=== PATIENT | male | born 1960 | race Caucasian/White ===

== ENCOUNTER 2018-07-20 16:58 | Inpatient (IN) | payer MEDICAID ==
[~2018-07-20] VITALS: Ht 180.3 cm; Wt 80.7 kg
[2018-07-20] MEDS: DEXT 5% / NACL 0.45% 1,000 ML IV SCH
--- NOTE | 2018-07-20 17:02 | NUR ---
PT BIBA ALS TO BED 2
[2018-07-20 17:05] VITALS: BP 119/67
--- NOTE | 2018-07-20 17:09 | NUR ---
58 Y/O M BIBA W/C/O PALPITATIONS WITH SOB. DENIES CHEST PAIN. MONITOR SHOWED SVT. ER MD MADE AWARE AND AT BEDSIDE AT THE TIME OF TRIAGE. EKG DONE IN FIELD. PER PATIENT, JUST GOT DISCHARGED FROM [facility]. WITH ATRIAL FIB. PT DENIES N/V/D; SKIN IS INTACT, PINK/WARM/DRY; AAOX4. LUNGS CLEAR BL, BREATHING UNLABORED; HR EVEN AND REGULAR, BL PERIPHERAL PULSES PRESENT; PT DENIES ANY FEVER, CP, SOB, OR COUGH AT THIS TIME; PT STATES 0/10 PAIN AT THIS TIME; VSS; PATIENT POSITIONED FOR COMFORT; HOB ELEVATED; BEDRAILS UP X2; BED DOWN. HX: AT. FIB,CROHNS,ULCERATIVE COLITIS
--- NOTE | 2018-07-20 17:15 | NUR ---
VERBAL ORDER GIVEN BY DR. WOOTEN TO PUSH 25MG DILTIAZEM.
[2018-07-20] MEDS ORDERED: DILTIAZEM 125 MG in DEXTROSE 5% 100 ML IV ONE (17:20)
[2018-07-20] MEDS ORDERED: DILTIAZEM 25 MG/5 ML VIAL IVP ONE ×3 (17:20→17:28)
[2018-07-20] MEDS ORDERED: LORazepam 2 MG/ML VIAL IVP ONE (17:30)
--- NOTE | 2018-07-20 17:30 | NUR ---
PT HR DOWN TO 122
[2018-07-20] MEDS ORDERED: DILTIAZEM 125 MG/25 ML VIAL IV ONE (17:35)
[2018-07-20] MEDS ORDERED: GABA300C PO (17:45)
[2018-07-20] MEDS ORDERED: FAMO-90 PO (17:45)
[2018-07-20] MEDS ORDERED: ZINC220C12 PO (17:45)
[2018-07-20] MEDS ORDERED: ASCO500T45 PO (17:45)
[2018-07-20] MEDS ORDERED: MERC50TA PO (17:45)
[2018-07-20] MEDS ORDERED: METO50TE2 PO (17:45)
[2018-07-20] MEDS ORDERED: SULF500T6 PO (17:45)
[2018-07-20] MEDS ORDERED: SUCR1TAB35 PO ×2 (17:45)
[2018-07-20] MEDS ORDERED: PRED20TA5 PO (17:45)
[2018-07-20] MEDS ORDERED: OXYC40TE66 PO (17:45)
[2018-07-20] MEDS ORDERED: FERR325E14 PO (17:45)
[2018-07-20] MEDS ORDERED: MULT-2246 PO (17:45)
[2018-07-20] MEDS ORDERED: VITD1000 PO (17:45)
[2018-07-20 17:57] LABS: BASOPHILS % (AUTO) 0.1 % (0.0-2.0); EOSINOPHILS % (AUTO) 0.1 % (0.0-4.0); HEMATOCRIT 30.3 % (36-52); HEMOGLOBIN 9.7 g/dL (12.0-18.0); LYMPHOCYTES # (AUTO) 1.5 K/uL (2.0-11.5); LYMPHOCYTES % (AUTO) 24.8 % (20.5-51.1); MEAN CORPUSCULAR HEMOGLOBIN 31 pg (27-31); MEAN CORPUSCULAR HGB CONC 32 g/dL (33-37); MEAN CORPUSCULAR VOLUME 97.7 fL (80-94); MONOCYTES # (AUTO) 0.7 K/uL (0.8-1.0); MONOCYTES % (AUTO) 11.3 % (1.7-9.3); NEUTROPHILS # (AUTO) 3.9 K/uL (1.8-7.7); NEUTROPHILS % (AUTO) 63.7 % (42.2-75.2); PLATELET COUNT (AUTO) 359 K/uL (140-450); RED BLOOD CELL COUNT(AUTO) 3.11 MIL/uL (4.20-6.10); RED CELL DISTRIBUTION WIDTH 19.9 % (11.6-13.7); WHITE BLOOD COUNT (AUTO) 6.1 K/uL (4.8-10.8)
[2018-07-20 18:01] LABS: BARBITURATE, URINE NEG. ng/ml (NEG <=200); BENZODIAZEPINE, URINE NEG. ng/mL (NEG <=200); CANNABINOID, URINE NEG. ng/mL (NEG <=50); COCAINE, URINE NEG. ng/mL (NEG <=300); OPIATE, URINE NEG. ng/mL (NEG <=2000); PHENCYCLIDINE SCREEN,URINE NEG. ng/mL (NEG <=25)
--- NOTE | 2018-07-20 18:04 | NUR ---
PT RESTING IN BED, AROUSABLE TO NAME IN RELAXED POSISTION. ARMS AT SIDE, FEET CROSSED.
[2018-07-20] MEDS ORDERED: LACTATED RINGERS 1,000 ML IV ONE (18:05)
[2018-07-20 18:11] LABS: APPEARANCE,URINE CLEAR (CLEAR); BILIRUBIN,URINE NEGATIVE (NEGATIVE); BLOOD, URINE NEGATIVE (NEGATIVE); COLOR,URINE YELLOW (YELLOW); LEUKOCYTE ESTERASE ,URINE NEGATIVE (NEGATIVE); NITRITE, URINE NEGATIVE (NEGATIVE); UGLUCOSE NEGATIVE (NEGATIVE)
[2018-07-20 18:15] LABS: ANION GAP 10.2 (8-16); CARBON DIOXIDE 29.8 mmol/L (21-32)
[2018-07-20] MEDS ORDERED: KCL 20 MEQ/WATER INJ PREMIX 100 ML IV ONE (18:20)
[2018-07-20] MEDS ORDERED: MAG SULF 2000 MG/WATER PREMIX 50 ML IV ONE (18:20)
[2018-07-20 18:22] LABS: ALBUMIN 2.7 g/dL (3.4-5.0); TOTAL BILIRUBIN 0.2 mg/dL (0.0-1.0)
[2018-07-20] MEDS ORDERED: DOCUSATE SODIUM 100 MG GELCAP PO PRN (18:25)
[2018-07-20] MEDS ORDERED: ONDANSETRON 4 MG/2 ML VIAL IM/IVP PRN (18:25)
[2018-07-20] MEDS ORDERED: ACETAMINOPHEN 325 MG TAB PO PRN (18:25)
[2018-07-20] MEDS ORDERED: NACL 0.9% 1,000 ML IV SCH (18:25)
[2018-07-20 18:33] LABS: ACETONE, SERUM NEGATIVE (NEGATIVE)
[2018-07-20 18:37] LABS: MAGNESIUM 2.1 mg/dL (1.8-2.4)
[2018-07-20] MEDS ORDERED: POTASSIUM CHLORIDE 40 MEQ, LIDOCAINE MPF 1% - 5 mL VIAL 25 MG in NACL 0.9% 250 ML IV SCH (19:00)
--- NOTE | 2018-07-20 19:00 | NUR ---
RECEIVED PT FROM ER VIA DEE. PT. AOX4. FOLLOWS COMMANDS. ABLE TO VERBALIZE NEEDS. AFEBRILE. EVEN, UNLABORED BREATHING. LUNG SOUNDS CLEAR BILATERALLY. SR ON MONITOR. DENIES CHEST PAIN, SOB. NO EDEMA NOTED. BOWEL SOUNDS ACTIVE X4 QUADRANTS. NPO EXCEPT MEDS. CONTINENT TO BOWEL AND BLADDER. SKIN WARM DRY. IV SITE RAC 18G PATENT INTACT. LAC 20G PATENT INTACT. R WRIST 20G PATENT INTACT. ON CARDIZEM DRIP 5MG/HR. AMB WITH WALKER. NO SIGNS OF ACUTE DISTRESS. BED IN LOWEST POSITION. CALL LIGHT WITHIN REACH.
--- NOTE | 2018-07-20 19:02 | NUR ---
PT STATES TO HAVE A FISTULA ON SACRAL COCCYX AREA. REFUSES TO GET PICTURE TAKEN. EXPLAIN RISK VS. BENEFITS. PT STILL REFUSES. WISH TO KEEP PANTS ON DURING STAY.
--- NOTE | 2018-07-20 19:05 | NUR ---
DR. BYERS AT BEDSIDE AT THIS TIME. UPDATED ON PTS CURRENT CONDITION. EXPLAINED RISK VS. BENEFITS OF CENTRAL LINE
[2018-07-20 19:07] LABS: CHOL/HDL RATIO 3.6 (1-4.5); PHOSPHORUS 3.9 mg/dL (2.5-4.9); THYROID STIMULATING HORMONE 0.81 uIU/mL (0.34-3.74)
--- NOTE | 2018-07-20 19:13 | NUR ---
Patient will be admitted to care of DR. BLOCK. Admited to ICU. Will go to room 1. Belongings list completed. Report to GIULIA RAMOS.
--- NOTE | 2018-07-20 19:30 | NUR ---
DR. HEART AT BEDSIDE AT THIS TIME.
[2018-07-20 20:00] VITALS: BP 115/74
--- NOTE | 2018-07-20 20:25 | NUR ---
DR. CORTEZ AT BEDSIDE AT THIS TIME. UPDATED ON PTS CURRENT CONDITION. WILL CONTINUE TO FOLLOW UP ANY ADDITIONAL ORDERS.
--- NOTE | 2018-07-20 21:01 | NUR ---
PT. REFUSING CENTRAL LINE PLACEMENT. DR. BYERS AT BEDSIDE AT THIS TIME. EXPLAINED RISK VS. BENEFITS FOR CENTRAL LINE INSERTION. PT STILL REFUSING. PREFERS PICC LINE INSTEAD. WILL CONTINUE TO MONITOR.
[2018-07-20 22:00] VITALS: BP 130/86
--- NOTE | 2018-07-20 22:18 | NUR ---
PT AGITATED. WISHES TO LEAVE AMA IF NOT GIVEN FOOD OR DRINK. DR. BYERS MADE AWARE.
--- NOTE | 2018-07-20 22:29 | NUR ---
DR. BYERS AT BEDSIDE AT THIS TIME. EXPLAINED RISK VS. BENEFITS. PT WISHES TO STAY IN HOSPITAL AT THIS TIME. D/T NOWHERE TO GO.
[2018-07-20] MEDS: MORPHINE SULFATE 2 MG/ML SYR IVP PRN (23:54)
[2018-07-21] VITALS (12 sets, daily range): BP systolic 100–137; BP diastolic 56–97
--- NOTE | 2018-07-21 | NUR ---
PT C/O PAIN 01/02 TO ABD AREA. ADMINISTERED MORPHINE IVP.
--- NOTE | 2018-07-21 00:14 | NUR ---
DR. BYERS AT BEDSIDE AT THIS TIME. UPDATED ON PTS CURRENT CONDITION. CONTINUE TO MONITOR
--- NOTE | 2018-07-21 00:46 | NUR ---
BLOOD PRESSURE 88/46. HEART RATE 78. CARDIZEM DRIP HELD AT THIS TIME. NO SIGNS OF ACUTE DISTRESS. WILL CONTINUE TO MONITOR.
--- NOTE | 2018-07-21 04:45 | NUR ---
LAB AT BEDSIDE AT THIS TIME FOR AM DRAWS
[2018-07-21] MEDS: sulfaSALAzine 500 MG TAB PO SCH ×3 (05:00→21:48)
--- NOTE | 2018-07-21 05:41 | NUR ---
AZULFIDINE 1000MG NOT GIVEN. UNAVAILABLE AT THIS TIME. MADE AWARE. WILL RESCHEDULE FOR 0900
[2018-07-21 06:11] LABS: BASOPHILS % (AUTO) 0.1 % (0.0-2.0); EOSINOPHILS % (AUTO) 0.5 % (0.0-4.0); HEMATOCRIT 30.6 % (36-52); HEMOGLOBIN 9.6 g/dL (12.0-18.0); LYMPHOCYTES # (AUTO) 2.4 K/uL (2.0-11.5); LYMPHOCYTES % (AUTO) 37.4 % (20.5-51.1); MEAN CORPUSCULAR HEMOGLOBIN 31 pg (27-31); MEAN CORPUSCULAR HGB CONC 31 g/dL (33-37); MEAN CORPUSCULAR VOLUME 98.4 fL (80-94); MONOCYTES # (AUTO) 0.7 K/uL (0.8-1.0); MONOCYTES % (AUTO) 10.4 % (1.7-9.3); NEUTROPHILS # (AUTO) 3.3 K/uL (1.8-7.7); NEUTROPHILS % (AUTO) 51.6 % (42.2-75.2); PLATELET COUNT (AUTO) 363 K/uL (140-450); RED BLOOD CELL COUNT(AUTO) 3.11 MIL/uL (4.20-6.10); RED CELL DISTRIBUTION WIDTH 19.8 % (11.6-13.7); WHITE BLOOD COUNT (AUTO) 6.4 K/uL (4.8-10.8)
[2018-07-21 06:17] LABS: ANION GAP 10.8 (8-16); CARBON DIOXIDE 28.1 mmol/L (21-32); CREATININE 0.7 mg/dL (0.7-1.3); POTASSIUM 3.9 mmol/L (3.5-5.1)
[2018-07-21] MEDS ORDERED: PHENYLEPHRINE 10 MG/ML VIAL ONE (06:27)
--- NOTE | 2018-07-21 06:38 | NUR ---
PT HAD LARGE BM AT THIS TIME.
--- NOTE | 2018-07-21 07:08 | NUR ---
ENDORSED CARE TO INCOMING SHIFT FOR CONTINUITY OF CARE. BED IN LOWEST POSITION. CALL LIGHT WITHIN REACH.
--- NOTE | 2018-07-21 07:10 | NUR ---
RECEIVED PATIENT FROM ARCHITECTURE PROFESSOR RN, FLOR, FOR CONTINUITY OF CARE. PATIENT IS AAOX4, ABLE TO MAKE NEEDS KNOWN AND FOLLOWS SIMPLE COMMANDS. PATIENT HAS A SACRAL FISTULA, PER ARCHITECTURE PROFESSOR RN, PATIENT REFUSED TO HAVE PICTURES TAKEN. PATIENT IS ON ROOM AIR, SR ON MONITOR, DENIES PAIN AT THIS TIME. HE HAS PERIPHERAL IV SITE TO LAC 18, RAC 20 AND R WRIST 20 GAUGE.ALL SAFETY PRECAUTIONS AND ALARMS ASSESSED AND ENFORCED. NO SIGNS OF DISTRESS AT THIS TIME, CALL LIGHT WITHIN REACH. WILL CONTINUE TO MONITOR
[2018-07-21] MEDS ORDERED: SUCRALFATE 1 GM TAB PO SCH (07:30)
--- NOTE | 2018-07-21 08:01 | NUR ---
DR. BLOCK AND RESIDENT PHYSICIANS AT BEDSIDE, UPDATED ON PATIENT'S CONDITION. WILL FOLLOW UP ON ANY ORDERS
--- NOTE | 2018-07-21 08:22 | NUR ---
PATIENT HAS BEEN SCREENED AND CATEGORIZED HIGH NUTRITION RISK. PATIENT WILL BE SEEN WITHIN 1-2 DAYS OF ADMISSION. 07/21/18-07/22/[address]
--- NOTE | 2018-07-21 08:25 | NUR ---
DR. CORTEZ HERE TO EXAMINE PATIENT, UPDATED ON PATIENT'S CONDITION. DISCUSSED POC WITH RESIDENT PHYSICIAN. WILL FOLLOW UP ON ANY ORDERS.
[2018-07-21] MEDS ORDERED: NON-FORMULARY ITEM PO SCH (09:00)
[2018-07-21] MEDS ORDERED: APIXABAN 2.5 MG TAB PO SCH (09:15)
[2018-07-21] MEDS: ASCORBIC ACID 500 MG TAB PO SCH (09:23)
[2018-07-21] MEDS: FERROUS SULFATE 325 MG TABEC PO SCH ×2 (09:24→21:51)
[2018-07-21] MEDS: PANTOPRAZOLE 40 MG INJ VIAL IVP SCH (09:25)
[2018-07-21] MEDS: METOPROLOL SUCCINATE 50 MG TABER PO SCH ×2 (09:25→21:52)
[2018-07-21] MEDS: predniSONE 20 MG TAB PO SCH ×2 (09:25→21:49)
[2018-07-21] MEDS: ZINC SULF 220 MG CAP PO SCH (09:25)
[2018-07-21] MEDS: GABAPENTIN 300 MG CAP PO SCH ×4 (09:25→21:52)
[2018-07-21] MEDS: MORPHINE SULFATE 2 MG/ML SYR IVP PRN ×2 (09:26→19:08)
--- NOTE | 2018-07-21 09:37 | NUR ---
COLLECTED STOOL OB, SENT TO LAB.
[2018-07-21] MEDS: SUCRALFATE 1 GM TAB PO SCH ×3 (09:51→17:04)
[2018-07-21] MEDS: DEXT 5% / NACL 0.45% 1,000 ML IV SCH (09:52)
[2018-07-21 11:22] LABS: FOLIC ACID 11.5 ng/mL (>3.0); T4 (THYROXINE) 5.3 ug/dL (4.5-12.0)
--- NOTE | 2018-07-21 11:38 | NUR ---
REINFORCEMENT MAKER AT BEDSIDE, NO SIGNS OF DISTRESS AT THIS TIME
[2018-07-21] MEDS: DILTIAZEM 30 MG TAB PO SCH ×2 (12:04→17:05)
[2018-07-21] MEDS ORDERED: MERCAPTOPURINE 50MG TABLET PO SCH (12:16)
[2018-07-21] MEDS ORDERED: HYDRAGUARD CREAM TP SCH (15:31)
--- NOTE | 2018-07-21 15:46 | NUR ---
PER FROM . ORDER FOR DME SEND TO [facility] CALLED CHEN AT [facility], FAXED ORDER FOR [phone].
[2018-07-21] MEDS: NACL 0.45% 1,000 ML IV SCH (16:19)
--- NOTE | 2018-07-21 16:24 | NUR ---
PATIENT IS SLEEPING, DENIES ANY SOB OR PAIN AT THIS TIME. WILL CONTINUE TO MONITOR
--- NOTE | 2018-07-21 17:11 | NUR ---
07/21/18 RD INITIAL ASSESSMENT COMPLETED PLEASE REFER TO NUTRITION ASSESSMENT UNDER CARE ACTIVITY FOR ESTIMATED NUTRITIONAL NEEDS. 1. CONTINUE CARDIAC DIET TOLERATED 2. RD PROVIDED NUTRITION EDUCATION ON CROHN�S DISEASE 3. RD TO FOLLOW-UP 5-7 DAYS, LOW RISK FABIAN HOFFMANN RD
--- NOTE | 2018-07-21 19:11 | NUR ---
ENDORSED CONTINUITY OF CARE TO MARKER SHIPMENTS RNANDREW. NO SIGNS OF DISTRESS AT THIS TIME
--- NOTE | 2018-07-21 19:30 | NUR ---
SBAR REPORT RECEIVED FROM DAY RN, MARIEL, HR IN 90S, GCS OF 15. ON ROOM AIR, NO S/S OF ANY ACUTE DISTRESS, IVF OF 1/2 NS RUNNING AT 70ML/HR. WILL CONTINUE TO MONITOR CLOSELY.
--- NOTE | 2018-07-21 21:15 | NUR ---
PT IS KEEP TAKING OFF GOWN AND PUTTING HIS OWN CLOTHES. DENIES ANY PLAN TO GO OUT. PT ASKED IF HE CAN SMOKE OUT SIDE AND COME BACK. PT MADE AWARE OF POLICIES OF ICU. VERBALIZES UNDERSTANDING.
[2018-07-21] MEDS: APIXABAN 2.5 MG TAB PO SCH (21:50)
[2018-07-21] MEDS: MERCAPTOPURINE 50MG TABLET PO SCH (21:51)
--- NOTE | 2018-07-21 23:45 | NUR ---
PT ASKED FOR MEAL, SANDWICHES AND SOME FRUIT JUICE GIVEN
[2018-07-22] VITALS (11 sets, daily range): BP systolic 110–157; BP diastolic 59–90
[2018-07-22] MEDS: DILTIAZEM 30 MG TAB PO SCH ×4 (00:23→17:29)
[2018-07-22] MEDS: MORPHINE SULFATE 2 MG/ML SYR IVP PRN ×5 (00:27→21:00)
--- NOTE | 2018-07-22 02:05 | NUR ---
PT ASKED FOR SCRUB PANTS, PROVIDED WITH IBIS. PT WARM AND COMFORTABLE.
[2018-07-22] MEDS: sulfaSALAzine 500 MG TAB PO SCH ×3 (05:12→21:01)
[2018-07-22] MEDS: NACL 0.45% 1,000 ML IV SCH ×3 (05:14→21:44)
[2018-07-22 05:46] LABS: ANION GAP 12.2 (8-16); CARBON DIOXIDE 27.3 mmol/L (21-32); CREATININE 0.8 mg/dL (0.7-1.3); POTASSIUM 4.5 mmol/L (3.5-5.1)
[2018-07-22 05:51] LABS: MAGNESIUM 1.9 mg/dL (1.8-2.4); PHOSPHORUS 3.1 mg/dL (2.5-4.9)
[2018-07-22 06:04] LABS: BASOPHILS % (AUTO) 0.1 % (0.0-2.0); EOSINOPHILS % (AUTO) 0.1 % (0.0-4.0); HEMOGLOBIN 11.1 g/dL (12.0-18.0); LYMPHOCYTES # (AUTO) 0.6 K/uL (2.0-11.5); LYMPHOCYTES % (AUTO) 8.4 % (20.5-51.1); MEAN CORPUSCULAR HEMOGLOBIN 31 pg (27-31); MEAN CORPUSCULAR HGB CONC 32 g/dL (33-37); MEAN CORPUSCULAR VOLUME 98.7 fL (80-94); MONOCYTES # (AUTO) 0.8 K/uL (0.8-1.0); MONOCYTES % (AUTO) 9.9 % (1.7-9.3); NEUTROPHILS # (AUTO) 6.3 K/uL (1.8-7.7); NEUTROPHILS % (AUTO) 81.5 % (42.2-75.2); PLATELET COUNT (AUTO) 414 K/uL (140-450); RED BLOOD CELL COUNT(AUTO) 3.55 MIL/uL (4.20-6.10); RED CELL DISTRIBUTION WIDTH 18.8 % (11.6-13.7); WHITE BLOOD COUNT (AUTO) 7.7 K/uL (4.8-10.8)
[2018-07-22] MEDS: SUCRALFATE 1 GM TAB PO SCH ×3 (06:54→16:42)
--- NOTE | 2018-07-22 07:25 | NUR ---
RECEIVED REPORT FROM HEAD BANQUET WAITRESS RN. PT SITTING IN BED. A/O X4. VERBALIZES NEEDS. SKIN DRY AND WARM TO TOUCH. SR ON MONITOR. LUNGS CLEAR. RIGHT WRIST 20G PERIPHERAL LINE. 0.45% NS INFUSING AT 70 ML/HR. SITE INTACT. FLUSHED. LEFT AC SALINE LOCK. INTACT. FLUSHED. ABDOMEN SOFT ROUND AND NON-TENDER. ACTIVE BOWEL SOUND. DENIES ANY PAIN AT THIS TIME. BED IN LOW POSITION LOCKED. CALL LIGHT WITHIN REACH. WILL CONTINUE TO MONITOR.
--- NOTE | 2018-07-22 07:45 | NUR ---
REDNESS NOTED ON GEOVANNI ANAL AREA. FISTULA NOTED ON LEFT BUTTOCK. NO ANY DRAINAGE NOTED AT THIS TIME. DR. BELEM WALKER.
[2018-07-22] MEDS: PANTOPRAZOLE 40 MG INJ VIAL IVP SCH (08:10)
[2018-07-22] MEDS: ASCORBIC ACID 500 MG TAB PO SCH (08:11)
[2018-07-22] MEDS: GABAPENTIN 300 MG CAP PO SCH ×4 (08:11→21:02)
[2018-07-22] MEDS: predniSONE 20 MG TAB PO SCH ×2 (08:11→21:02)
[2018-07-22] MEDS: ZINC SULF 220 MG CAP PO SCH (08:11)
[2018-07-22] MEDS: FERROUS SULFATE 325 MG TABEC PO SCH ×2 (08:11→21:01)
[2018-07-22] MEDS: APIXABAN 2.5 MG TAB PO SCH ×2 (08:13→21:06)
[2018-07-22] MEDS: HYDROcodone/APAP 5/325 MG 1 TAB TAB PO PRN ×2 (08:43→19:34)
[2018-07-22] MEDS: METOPROLOL 50 MG TAB PO SCH ×2 (08:43→21:01)
[2018-07-22] MEDS: MERCAPTOPURINE 50MG TABLET PO SCH ×2 (08:45→21:08)
[2018-07-22] MEDS ORDERED: METOPROLOL 50 MG TAB ONE (08:49)
--- NOTE | 2018-07-22 09:55 | NUR ---
PT DENIES ANY NAUSEA, VOMITING OR DIARRHEA. AFEBRILE. HAS GOOD APPETITE. NO C/O ANY ABDOMINAL PAIN.
--- NOTE | 2018-07-22 11:20 | NUR ---
DR. HEART IN TO SEE THE PT. UPDATE PT CONDITION. OKAY TO TRANSFER PT TELE PER DR. HEART.
--- NOTE | 2018-07-22 11:32 | NUR ---
PVC NOTED ON BEDSIDE ECG MONITOR. DR. PATRICIA MADE AWARE. ORDERED 12 LEAD EKG. WILL F/U ORDER.
--- NOTE | 2018-07-22 11:40 | NUR ---
SPOKE TO DR. HEART. MADE AWARE ABOUT PVCS. OKAY TO TRANSFER TO TELE PER DR. HEART.
--- NOTE | 2018-07-22 12:25 | NUR ---
DR. BENITES IN TO SEE PT. UPDATED PT CONDITION. PT WAS EXPLAINED ABOUT DISEASE AND POC BY DR. BENITES. PT VERBALIZED UNDERSTANDING. ORDERED FOR DOPPLER VENOUS DOPPLER LOWER EXTREMITIES TO RULE OUT DVT. DR. PATRICIA AWARE. WILL F/U ORDER
--- NOTE | 2018-07-22 12:28 | NUR ---
PT EVELUATED BY WOUND CARE NURSE.
--- NOTE | 2018-07-22 12:55 | NUR ---
WOUND CARE EVALUATION NOTE: REASON FOR EVALUATION: LEFT BUTTOCKS WOUNDS SKIN ASSESSMENT DONE WITH PRIMARY RN WITH THIS 58 Y/O MALE PT ADMITTED TO [facility] WITH INITIAL DX OF A FIB. PAST MEDICAL HX INCLUDES CROHN�S DISEASE, A-FIB AND GERD. PT IS AAX4. PER PT. HE HAS CROHN�S DISEASE AND LBM FOR PAST FEW MONTHS WITH PERIANAL WOUNDS FOR MONTHS, LAST TREATMENT WAS DONE AT �[facility]� WITH BARRIER SPRAYS DAILY AND NEEDED. SKIN IS WARM AND DRY, BLE WITH FEW HAIR GROWTH, DORSAL PEDAL PULSES PRESENT.FUNGAL LIKE TOE NAILS. PLAN OF CARE DISCUSSED WITH PRIMARY RN AND PT. PT VERBALIZES UNDERSTANDING. INTEGUMENTARY: -MULTIPLE TATTOO TO UPPER ARMS -MOISTURE ASSOCIATED DERMATITIS FROM LBM 2/2 CROHN'S DISEASE TO R/L INNER BUTTOCKS REDNESS AND PER-ANAL WITH MULTIPLE LINING SHAPES PARTIAL THICKNESS LOSS OF SKIN, WOUND BEDS ARE CLEAN, MOIST, NO S/S INFECTION. ENTIRE REDNESS AREA 11X4.5X0.1CM. RECOMMENDATIONS -CLEANSE R/L INNER BUTTOCKS AND PERIANAL WITH SOAP AND WATER, APPLY Z-GUARD BIDWC AND PRN IF SOILING, PER PT�S REQUEST PLEASE COVER WITH ISLAND DRESSING -OFFLOAD BILATERAL HEELS BY PLACING PILLOWS UNDER CALVES UNLESS OTHERWISE CONTRAINDICATED -CONTINUE TO FOLLOW RD RECOMMENDATIONS ALL ABOVE RECOMMENDATIONS DISCUSSED WITH PRIMARY RN AND DR. MARQUEZ PLEASE CONTACT WOUND CARE NURSE FOR ANY QUESTION AND CHANGE OF WOUND CONDITION.
--- NOTE | 2018-07-22 12:55 | NUR ---
Cuong Moore from [place] here to evaluate the pt.
[2018-07-22] MEDS ORDERED: Z-GUARD PASTE TP PRN (13:10)
--- NOTE | 2018-07-22 14:07 | NUR ---
RECEIVED CALL FROM [facility]. SPOKE TO YNES CHADWICK. SHE WANTS US TO CALL TO THE NUMBER PROVIDED [phone] OR [phone] (DR. NAVAS) BEFORE PT GET DISCHARGE.
--- NOTE | 2018-07-22 14:31 | NUR ---
PRN G-GUARD APPLIED TO PERIANAL AREA. NO ANY C/O PAIN. SR ON MONITOR. DENIES ANY N/V OR DIARRHEA.
--- NOTE | 2018-07-22 14:56 | NUR ---
Spoke with Cuong alva from [facility] . He will confirm with me tomorrow if the pt will be accepted in [facility].
--- NOTE | 2018-07-22 15:07 | NUR ---
PT EVALUATED BY DR. CORTEZ.
--- NOTE | 2018-07-22 15:17 | NUR ---
LOWER EXTREMITIES VENOUS DOPPLER DONE.
[2018-07-22] MEDS ORDERED: BENA20TA PO (15:26)
[2018-07-22] MEDS ORDERED: SIMV20TA6 PO (15:26)
--- NOTE | 2018-07-22 15:37 | NUR ---
CALLED [phone]. SPOKE TO FARRUKH. F[facility]UKH SAID IF PATIENT NEEDS THEIR SERVICES HE CAN GO THERE. PATIENT MADE AWARE.
--- NOTE | 2018-07-22 18:15 | NUR ---
PT REMAINED AFEBRILE THROUGHOUT THE SHIFT. SR. NO N/V/D NOTED. SPO2 965 IN ROOM AIR. NO ANY COMPLAIN OF PAIN. PT WILL BE TRANSFERRED TO TELE 105B.
--- NOTE | 2018-07-22 18:35 | NUR ---
PT TRANSFERRED TO TELE UNIT ROOM 105B ON STABLE CONDITION VIA WHEELCHAIR. REPORT GIVEN TO RN INGRED. BELONGINGS ALONG WITH WALKER TAKEN TO ROOM WITH THE PATIENT. PATIENT AND NURSE AWARE.
--- NOTE | 2018-07-22 18:40 | NUR ---
ASSUMED CARE FROM ICU NURSE DANNY-RACHEL. PT AAOX4. NO SOB NOTED. NO COMPLAINTS OF PAIN AT THIS TIME. SETTLED PT IN BED, INSTRUCTED PT TO CALL FOR ASSISTANCE,CALL LIGHT WITHIN REACH, PT VERBALIZED UNDERSTANDING.
--- NOTE | 2018-07-22 19:00 | NUR ---
PT AWAKE, NO SOB NOTED. NO COMPLAINTS MADE. WILL ENDORSE TO NEXT SHIFT NURSE FOR CONTINUITY OF CARE.
--- NOTE | 2018-07-22 19:10 | NUR ---
RECEIVED PT AWAKE ON BED READING A BOOK, VITAL SIGNS STABLE, COMPLAINING OF ABDOMINAL PAIN, REQUESTING FOR PAIN PILL, WILL MEDICATE WITH NORCO, IVF INFUSING WELL, DENIES ANY EPISODE OF DIARRHEA, SAFETY MEASURES IN PLACE, CALL LIGHT WITHIN REACH.
[2018-07-22] MEDS ORDERED: SIMVASTATIN 20 MG TAB PO SCH (21:00)
--- NOTE | 2018-07-22 21:10 | NUR ---
DUE MEDS ADMINISTERED, AMBULATORY TO TOILET WITH STEADY GAIT, VOIDING FREELY, ALL NEEDS ATTENDED.
--- NOTE | 2018-07-22 23:40 | NUR ---
PT AWAKE WATCHING TV, VITAL SIGNS STABLE, TOLERABLE PAIN AT THIS TIME, IVF INFUSING WELL, CONTINUE TO MONITOR CLOSELY.
[2018-07-23] VITALS: BP 133/89
[2018-07-23] MEDS: MORPHINE SULFATE 2 MG/ML SYR IVP PRN ×2 (01:30→06:46)
[2018-07-23] MEDS: Z-GUARD PASTE TP SCH ×2 (01:32→13:22)
--- NOTE | 2018-07-23 01:40 | NUR ---
PT STATED HE WANTS HIS IVF OFF FOR NOW SINCE HIS BEEN VOIDING A LOT AND HE CANNOT GET SOME SLEEP, RISK AND BENEFITS EXPLAINED, PT WANTS TO RESUME IVF IN THE MORNING, DR BYERS MADE AWARE.
[2018-07-23] MEDS: HYDROcodone/APAP 5/325 MG 1 TAB TAB PO PRN ×2 (02:57→10:53)
--- NOTE | 2018-07-23 02:57 | NUR ---
PT COMPLAINING THAT MORPHINE WAS NOT RELIEVING THE PAIN BECAUSE IT WAS FLUSH A LOT AND SO IT GOT DILUTED, PT NOW REQUESTING FOR NORCO, NORCO PO GIVEN FOR ABDOMINAL PAIN, VITAL SIGNS STABLE, MONITORED CLOSELY.
[2018-07-23 04:00] VITALS: BP 140/88
[2018-07-23] MEDS: sulfaSALAzine 500 MG TAB PO SCH ×2 (04:42→13:15)
[2018-07-23] MEDS ORDERED: NICOTINE TRANSD SYS 14 MG/24 HR PATCH TD SCH (05:00)
--- NOTE | 2018-07-23 05:05 | NUR ---
PT AWAKE WANTS TO GO OUTSIDE THE HOSPITAL AND SMOKE, TOLD PT THAT ITS AGAINST HOSPITAL POLICY FOR PT TO GO OUTSIDE AND SMOKE AND OFFERED TO HIM THAT I CAN GET AN ORDER FOR NICOTINE PATCH, PT STILL INSISTING STATING HOSPITAL EMPLOYEES CAN SMOKE AND IN OTHER HOSPITAL THEY LET HIM GO OUTSIDE AND SMOKE WITH ESCORT, REINFORCE HOSPITAL POLICY AGAIN, PT UPSET AND STARTED TO SWEAR, CHARGE NURSE SHELBIE AND DR BYERS MADE AWARE, DR BYERS TALKED TO PT AND SHE WILL ORDER NICOTINE PATCH FOR PT TO TRY, NICOTINE PATCH APPLIED TO RT DELTOID, PT PACING INSIDE THE ROOM, MONITORED CLOSELY.
[2018-07-23 06:15] LABS: BASOPHILS % (AUTO) 0.1 % (0.0-2.0); HEMATOCRIT 36.7 % (36-52); HEMOGLOBIN 11.6 g/dL (12.0-18.0); LYMPHOCYTES # (AUTO) 0.9 K/uL (2.0-11.5); LYMPHOCYTES % (AUTO) 11.6 % (20.5-51.1); MEAN CORPUSCULAR HEMOGLOBIN 31 pg (27-31); MEAN CORPUSCULAR HGB CONC 32 g/dL (33-37); MEAN CORPUSCULAR VOLUME 98.1 fL (80-94); MONOCYTES # (AUTO) 0.7 K/uL (0.8-1.0); MONOCYTES % (AUTO) 9.3 % (1.7-9.3); NEUTROPHILS # (AUTO) 5.9 K/uL (1.8-7.7); PLATELET COUNT (AUTO) 437 K/uL (140-450); RED BLOOD CELL COUNT(AUTO) 3.74 MIL/uL (4.20-6.10); RED CELL DISTRIBUTION WIDTH 16.7 % (11.6-13.7); WHITE BLOOD COUNT (AUTO) 7.4 K/uL (4.8-10.8)
[2018-07-23] MEDS: SUCRALFATE 1 GM TAB PO SCH ×2 (06:46→11:39)
[2018-07-23 06:52] LABS: ANION GAP 12.3 (8-16); CREATININE 0.9 mg/dL (0.7-1.3); POTASSIUM 4.3 mmol/L (3.5-5.1)
--- NOTE | 2018-07-23 06:52 | NUR ---
DUE CARAFATE GIVEN, MEDICATED PRN FOR PAIN WITH MORPHINE IVP AND FLUSHED IT WITH 1ML STERILE WATER PER PT'S DIRECTION, PT STATED NICOTINE PATCH HELPS WITH HIS SMOKING CRAVING, PT STATED TWO BM WITH WELL FORMED STOOL, WILL ENDORSE.
[2018-07-23 06:57] LABS: PHOSPHORUS 3.7 mg/dL (2.5-4.9)
--- NOTE | 2018-07-23 07:10 | NUR ---
RECEIVED PT REPORT FROM BICYCLE INSPECTOR NURSE. PT IS ALERT AND AWAKE, NO S/S OF ACUTE DISTRESS NOTED. PT IS AMBULATORY, NO SKIN ISSUES, ON ROOM AIR. TWO IV SITES NOTED: LAC 22 G, AND R HAND 20 G. PT HAS BEEN REFUSING IV FLUIDS. CALL LIGHT WITHIN REACH. WILL CONTINUE TO MONITOR.
--- NOTE | 2018-07-23 07:33 | NUR ---
PT SLEEPING, NO SIGNS OF DISTRESS, REPORT GIVEN TO RACHEL BOWMAN FOR CONTINUITY OF CARE.
[2018-07-23 08:00] VITALS: BP 151/97
[2018-07-23] MEDS ORDERED: DILT120C95 PO (08:22)
[2018-07-23] MEDS ORDERED: APIX2.5 PO (08:22)
[2018-07-23] MEDS ORDERED: BENAZEPRIL 20 MG TAB PO SCH (09:00)
[2018-07-23] MEDS ORDERED: DILTIAZEM 120 MG CAPER PO SCH (09:00)
--- NOTE | 2018-07-23 09:05 | NUR ---
PT INFORMED RN THAT HIS 4W WALKER IS BROKEN, AND HE IS REQUESTING IT TO BE REPLACED OR FIXED. CHARGE NURSE IS AWARE. WILL FOLLOW UP WITH MD AND CM.
--- NOTE | 2018-07-23 09:16 | NUR ---
LATE ENTRY FOR 07/22/18 1150 MET WITH PATIENT TO DISCUSS DISCHARGE PLAN, MARILYN FAYE RN/CM PRESENT. PER PATIENT HE LIVES IN [facility] AND THAT BEN JI MADE ARRANGEMENTS FOR AN UBER SET O TYPE OPERATOR TO PICK HIM UP FROM [facility] AND TRANSPORT HIM TO [facility] FOR TREATMENT OF HIS CROHN'S DISEASE. HE STATED THAT THE [facility] ALMA[facility] APPLIED FOR SSI FOR HIM AND THAT HE THINKS HE HAS AN APPOINTMENT ON THIS FRIDAY TO GO TO THE OFFICE. HE SAID THAT WHEN HE WAS DISCHARGED FROM [place] HE WAS LIVING ON THE [place] FOR A FEW DAYS THEN CAME TO [facility]. ASKED PATIENT WHAT IS PLAN WAS FOR DISCHARGE AND HE SAID HE WANTS TO GO BACK TO [place] BUT DOESN'T HAVE ANY MONEY OR ANYWAY TO GET THERE. ASKED PATIENT IF HE HAS FOLLOWED UP WITH [facility]IA[facility] ALMAZAN AND HE SAID THAT HE HAD NOT BUT DOES HAVE HER NUMBER. SUGGESTED TO HIM THAT HE CONTACT WILL[facility] AND VERIFY HIS APPT ON FRIDAY AND THAT TRANSPORTATION COULD BE ARRANGED FOR HIM TO GO TO HIS APPT FRIDAY IN [place] TO FOLLOW UP ON HIS SSI APPLICATION AND STATUS. OFFERED PATIENT RESOURCES ON SHELTERS AND THEN HE STATED WELL MAYBE I CAN CONTACT MY JODI IN [place] AND SEE IF HE CAN WIRE ME SOME MONEY AND I CAN TAKE THE AMTRACK AND THEN CATCH A BUS. INFORMED PATIENT WILL FOLLOW UP WITH HIM TOMORROW ON THE STATUS OF HIS FINDINGS OF THE PHONE CALLS HE PLANS TO MAKE.
[2018-07-23] MEDS: PANTOPRAZOLE 40 MG INJ VIAL IVP SCH (09:47)
[2018-07-23] MEDS: FERROUS SULFATE 325 MG TABEC PO SCH (09:48)
[2018-07-23] MEDS: METOPROLOL 50 MG TAB PO SCH (09:48)
[2018-07-23] MEDS: ZINC SULF 220 MG CAP PO SCH (09:48)
[2018-07-23] MEDS: ASCORBIC ACID 500 MG TAB PO SCH (09:48)
[2018-07-23] MEDS: GABAPENTIN 300 MG CAP PO SCH ×2 (09:49→13:14)
[2018-07-23] MEDS: predniSONE 20 MG TAB PO SCH (09:49)
[2018-07-23] MEDS: APIXABAN 2.5 MG TAB PO SCH (09:50)
[2018-07-23] MEDS: MERCAPTOPURINE 50MG TABLET PO SCH (09:54)
[2018-07-23] MEDS: NACL 0.45% 1,000 ML IV SCH (10:44)
[2018-07-23 12:00] VITALS: BP 127/74
[2018-07-23] MEDS ORDERED: APIX5TAB PO (12:25)
[2018-07-23] MEDS ORDERED: DILT-135 PO (12:25)
--- NOTE | 2018-07-23 12:39 | NUR ---
ASSISTED LIVING HOME DIRECTOR PROVIDED PT WITH NEW 4W WALKER PER PT'S REQUEST, PT'S OLD WALKER IS BROKEN.
--- NOTE | 2018-07-23 13:38 | NUR ---
PHOTO TAKEN OF PT'S BUTTOCK DERMATITIS WOUND FOR DC DOCUMENTATION.
--- NOTE | 2018-07-23 13:39 | NUR ---
OBTAINED TAXI VOUCHER FOR PT TO DISCHARGE.
--- NOTE | 2018-07-23 15:30 | NUR ---
PT HAS DISCHARGED. PT WAS GIVEN DC INSTRUCTIONS TO WHICH HE VERBALIZED UNDERSTANDING. COMMUNITY RESOURCE INFORMATION GIVEN. PT SIGNED ALL DC DOCUMENTS. REFUSED FLU VACCINE. IV SITES DC'D, WRIST BAND REMOVED. PT LEFT WITH ALL HIS BELONGINGS IN STABLE CONDITION VIA TAXI.
[2018-07-24] MEDS ORDERED: NICOTINE TRANSD SYS 14 MG/24 HR PATCH TD SCH (09:00)
== END 2018-07-23 15:30 | disposition home or self-care (01) | DRG 201 ==
LOC: MED 16:58 → MIC 18:25 → MTU 07-22 18:35
PROVIDERS: ADMIT General Practice; ATTEND General Practice
DX: I48.91 Unspecified atrial fibrillation (principal); J96.01 Acute respiratory failure with hypoxia; E43 Unspecified severe protein-calorie malnutrition; K50.90 Crohn's disease, unspecified, without complications; G62.9 Polyneuropathy, unspecified; E83.51 Hypocalcemia; E86.9 Volume depletion, unspecified; E87.6 Hypokalemia; K21.9 Gastro-esophageal reflux disease without esophagitis; G89.29 Other chronic pain; D50.9 Iron deficiency anemia, unspecified; E78.5 Hyperlipidemia, unspecified; Z79.01 Long term (current) use of anticoagulants; Z59.0 Homelessness; Z91.14 Patient's other noncompliance with medication regimen; Z88.0 Allergy status to penicillin; Z79.899 Other long term (current) drug therapy; Z68.24 Body mass index [BMI] 24.0-24.9, adult; L98.8 Other specified disorders of the skin and subcutaneous tissue
CPT/HCPCS: 36415; 36600; 71045; 80048; 80053; 80305; 81003; 82009; 82140; 82150; 82272; 82607; 82728; 82746; 82803; 83036; 83540; 83690; 83735; 83880; 84100; 84436; 84443; 84484; 85025; 85045; 85379; 85610; 85730; 87081; 93005; 93970; 96365; 96368; 96375; 99285; C9113; G0482; J2001; J2060; J2270; J2370; J3475; J3480; J3490; J7030; J7060; J7512; Q0092